=== PATIENT | female | born 1980 | race Caucasian/White ===

== ENCOUNTER 2021-02-04 15:09 | Outpatient (CLI) | payer BC, SELFPAY ==
--- NOTE | 2021-02-04 15:22 | MM_ITS ---
WS: [id number] BILATERAL DIGITAL SCREENING MAMMOGRAPHY WITH CAD CLINICAL INFORMATION: SCREENING HISTORY: Screening mammogram. No current complaints. COMPARISON: None. TECHNIQUE: Bilateral CC and MLO views. FINDINGS: Scattered fibroglandular densities bilaterally. No suspicious focal mass, asymmetry, calcifications, or architectural distortion. No evidence of malignancy. MM/[place] [id number] IMPRESSION: BI-RADS: 1-Negative FOLLOW UP: 1 Year Follow-up Recommend return to annual screening mammography.
== END 2021-02-04 15:10 | disposition home or self-care (01) ==
PROVIDERS: PCP Family Medicine; Visit Provider Nurse Practitioner Family
DX: Z12.31 Encounter for screening mammogram for malignant neoplasm of breast (principal)
CPT/HCPCS: 77067

== ENCOUNTER 2025-01-12 08:47 | Outpatient (CLI) | payer BC, SELFPAY ==
--- NOTE | 2025-01-12 08:53 | MM_ITS ---
WS: [id number] SCREENING DIGITAL BREAST TOMOSYNTHESIS MAMMOGRAM WITH CAD HISTORY: SCREENING COMPARISON: 02/04/2021 Bilateral CC and MLO with tomosynthesis and synthetic mammography submitted. Computer aided detection analyzed. Breast composition: The breasts are almost entirely fatty. Developing irregular asymmetry in the posterior LEFT breast just lateral to the nipple line. Estimated at 3:00. Asymmetry measures 2.8 x 1.8 x 2.2 cm. No additional abnormalities. No suspicious grouping of calcifications. MM/MM [facility] tomosynthesis [id number] IMPRESSION: BI-RADS: 0 - Incomplete: Need additional imaging evaluation. FOLLOW UP: Need Additional Imaging LEFT breast: Spot compression views (CC and MLO). True ML. Ultrasound to follow if abnormality persists.
== END 2025-01-12 08:48 | disposition home or self-care (01) ==
PROVIDERS: PCP Nurse Practitioner Family; Visit Provider Nurse Practitioner Family
DX: Z12.31 Encounter for screening mammogram for malignant neoplasm of breast (principal); R92.313 Mammographic fatty tissue density, bilateral breasts; N63.25 Unspecified lump in the left breast, overlapping quadrants
CPT/HCPCS: 77063; 77067

== ENCOUNTER 2025-02-12 07:51 | Outpatient (CLI) | payer BC, SELFPAY ==
--- NOTE | 2025-02-12 07:54 | MM_ITS ---
WS: [id number] ADDITIONAL VIEWS LEFT MAMMOGRAM WITH DIGITAL BREAST TOMOSYNTHESIS. LEFT breast ultrasound, limited. HISTORY: ABNORMAL MAMMO COMPARISON: 02/04/2021, 01/12/2025 Spot compression views LEFT breast in CC, MLO projections and true ML submitted with digital breast tomosynthesis and SM. Breast composition: The breasts are almost entirely fatty. Irregular asymmetry persists in the posterior LEFT breast just lateral to the nipple line and just below the nipple line. No suspicious calcifications. The asymmetry measures 2.5 x 3.3 x 2.2 cm. Margins are irregular. No suspicious calcifications. LEFT breast ultrasound, limited. There is an area of very vague change in echogenicity and slight shadowing near 4:00 at the nipple edge. No well-defined mass. MM/MM diag [place] tomosynthesis [id number] IMPRESSION: BI-RADS: 4 - Suspicious Finding - Biopsy Should Be Considered. FOLLOW UP: Biopsy Recommended Stereotactic biopsy recommended LEFT breast mass 4:00. Discussed with patient at the time of the exam.
== END 2025-02-12 07:52 | disposition home or self-care (01) ==
LOC: RAD 07:52
PROVIDERS: PCP Nurse Practitioner Family; Visit Provider Nurse Practitioner Family
DX: R92.8 Other abnormal and inconclusive findings on diagnostic imaging of breast (principal)
CPT/HCPCS: 76642; 77061; G0279

== ENCOUNTER 2025-03-06 12:03 | Outpatient (CLI) | payer BC, SELFPAY ==
--- NOTE | 2025-03-06 12:10 | MM_ITS ---
WS: [id number] STEREOTACTIC LEFT BREAST BIOPSY WITH VACUUM ASSISTANCE HISTORY: ABNORMAL MAMMO COMPARISON: 02/12/2025, 01/12/2025, 02/04/2021 Procedure, risks and complications were explained to the patient. Medications and prior radiographs are reviewed. LEFT breast asymmetry is localized. Asymmetry is targeted in the craniocaudal projection. The skin is cleansed with ChloraPrep and anesthetized with 1% buffered lidocaine. Deeper soft tissues anesthetized with a combination of lidocaine and epinephrine. Small dermatome is made. Needle advanced into the LEFT breast. Stereotactic imaging reveals appropriate positioning within the asymmetry. Multiple vacuum-assisted core biopsies are obtained. No complications were encountered. Close specimen radiograph was obtained. Biopsy clip is placed in the cavity. Post imaging reveals good placement of the clip. No migration. Pressures held for approximately 15 minutes. No bleeding. Dressing applied. Patient discharged with no complications. There is no bleeding. With any questions or complications patient is to return. MM/[place] [id number] IMPRESSION: 1. Uncomplicated LEFT breast stereotactic biopsy. Biopsy of asymmetric soft ti ssue which has progressed. 2. High-density material within the specimen. 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 No itzel gnancy or calcifications. RECOMMENDATION: 6-month mammogram.
--- NOTE | 2025-03-06 12:28 | MM_ITS ---
WS: [id number] STEREOTACTIC LEFT BREAST BIOPSY WITH VACUUM ASSISTANCE HISTORY: ABNORMAL MAMMO COMPARISON: 02/12/2025, 01/12/2025, 02/04/2021 Procedure, risks and complications were explained to the patient. Medications and prior radiographs are reviewed. LEFT breast asymmetry is localized. Asymmetry is targeted in the craniocaudal projection. The skin is cleansed with ChloraPrep and anesthetized with 1% buffered lidocaine. Deeper soft tissues anesthetized with a combination of lidocaine and epinephrine. Small dermatome is made. Needle advanced into the LEFT breast. Stereotactic imaging reveals appropriate positioning within the asymmetry. Multiple vacuum-assisted core biopsies are obtained. No complications were encountered. Close specimen radiograph was obtained. Biopsy clip is placed in the cavity. Post imaging reveals good placement of the clip. No migration. Pressures held for approximately 15 minutes. No bleeding. Dressing applied. Patient discharged with no complications. There is no bleeding. With any questions or complications patient is to return. MM/MM surgical specimen LT IMPRESSION: 1. Uncomplicated LEFT breast stereotactic biopsy. Biopsy of asymmetric soft ti ssue which has progressed. 2. High-density material within the specimen. 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 No itzel gnancy or calcifications. RECOMMENDATION: 6-month mammogram.
--- NOTE | 2025-03-06 12:28 | MM_ITS ---
WS: [id number] STEREOTACTIC LEFT BREAST BIOPSY WITH VACUUM ASSISTANCE HISTORY: ABNORMAL MAMMO COMPARISON: 02/12/2025, 01/12/2025, 02/04/2021 Procedure, risks and complications were explained to the patient. Medications and prior radiographs are reviewed. LEFT breast asymmetry is localized. Asymmetry is targeted in the craniocaudal projection. The skin is cleansed with ChloraPrep and anesthetized with 1% buffered lidocaine. Deeper soft tissues anesthetized with a combination of lidocaine and epinephrine. Small dermatome is made. Needle advanced into the LEFT breast. Stereotactic imaging reveals appropriate positioning within the asymmetry. Multiple vacuum-assisted core biopsies are obtained. No complications were encountered. Close specimen radiograph was obtained. Biopsy clip is placed in the cavity. Post imaging reveals good placement of the clip. No migration. Pressures held for approximately 15 minutes. No bleeding. Dressing applied. Patient discharged with no complications. There is no bleeding. With any questions or complications patient is to return. MM/[place] [id number] IMPRESSION: 1. Uncomplicated LEFT breast stereotactic biopsy. Biopsy of asymmetric soft ti ssue which has progressed. 2. High-density material within the specimen. 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 No itzel gnancy or calcifications. RECOMMENDATION: 6-month mammogram.
== END 2025-03-06 12:04 | disposition home or self-care (01) ==
LOC: RAD 12:05
PROVIDERS: PCP Nurse Practitioner Family; Visit Provider Nurse Practitioner Family
DX: R92.8 Other abnormal and inconclusive findings on diagnostic imaging of breast (principal); N60.42 Mammary duct ectasia of left breast; R60.9 Edema, unspecified
CPT/HCPCS: 19081; 77065; 88305; J7050; J9999